=== PATIENT | female | born 1990 | race Caucasian/White ===

== ENCOUNTER 2019-03-03 16:02 | Emergency (ER) | payer SELFPAY ==
[~2019-03-03] VITALS: Ht 167.6 cm; Wt 63.5 kg
[2019-03-03 16:11] VITALS: BP 117/65
--- NOTE | 2019-03-03 16:27 | NUR ---
PT AMBULATED TO CHAIR C.
--- NOTE | 2019-03-03 16:28 | NUR ---
28 Y/O F C/C FEVER, DIARRHEA, NAUSEA X3 DAYS. PER PT HAS TAKEN IBUPROFEN 800MG TODAY 0320 HOURS. PT NKA. NO HX. NO RX. NO VOMITTING. PT NOT TAKEN FLU SHOT; FAMILY SICK AT HOME. PT SITTING IN CHAIR C WITH FAMILY MEMBER.
--- NOTE | 2019-03-03 16:48 | NUR ---
FLU SWAP COLLECTED
[2019-03-03 17:04] VITALS: BP 117/65
--- NOTE | 2019-03-03 17:04 | NUR ---
Patient discharged with v/s stable. Written and verbal after care instructions given and explained. Patient alert, oriented and verbalized understanding of instructions. Ambulatory with steady gait. All questions addressed prior to discharge. ID band removed. Patient advised to follow up with PMD. Rx of PROMETHAZINE,IBUPROFEN,ACETAMINOPHEN,ZOFRAN,TAMIFLU given. Patient educated on indication of medication including possible reaction and side effects. Opportunity to ask questions provided and answered.
== END 2019-03-03 17:04 | disposition home or self-care (01) ==
LOC: MED 16:02
DX: J06.9 Acute upper respiratory infection, unspecified (principal)
CPT/HCPCS: 87804; 99283